=== PATIENT | female | born 2000 | race Caucasian/White ===

== ENCOUNTER 2025-01-31 19:01 | Emergency (ER) | payer BC, SELFPAY ==
[2025-01-31 19:03] VITALS: BP 143/83
[2025-01-31 20:40] VITALS: BMI 21.0
[2025-01-31 20:41] VITALS: BP 119/82
--- NOTE | 2025-01-31 21:59 | ED.SKININJ ---
HPI-Injury
General
Chief Complaint: Eye Problems
Source: patient
Exam Limitations: none
Time Seen by Provider: 01/31/25 21:50
Nursing documentation reviewed up to this point in time: agreed with
History of Present Illness-Injury
Initial Injury comments:
24 yo female presents with swelling, mild erythema upper right eyelid. Had lash extensions 2 days ago. Denies change in vision.
States she started with a headache around the right eye 2 days ago and the eye was 'a little itchy.' As time progressed, the upper eyelid became more swollen and headache persisted.
Denies fever/chills.
Past History
Past History
ED Past Medical History: None
ED Past Surgical History: None
Social History
Tobacco: Non-smoker
Alcohol: Occasional
Personal:
Living: with family
Employment: Employed ([employer])
Review of Systems
Review of Systems
Allergies reviewed?: Yes
All Other Systems: ROS reviewed and negative except as documented in HPI and ROS
Phy Exam
Physical Exam
Physical Exam:
GENERAL: No acute distress. A&Ox3.
CONSTITUTIONAL: Afebrile.
EYES: clear, conjunctivae normal, PERRL. Non tender to palpation. EOMs intact. Visual acuity noted. Mild erythema and mild swelling upper right eyelid, mild erythema right periorbital area.
ENMT: moist mucus membranes, Pharynx nl
RESPIRATORY: Regular respirations, nonlabored, lungs clear.
CARDIOVASCULAR: Regular rate and rhythm, no murmurs, no rubs.
GI: Soft, nontender
MUSCULOSKELETAL: Moves with ease. Well perfused.
SKIN: Warm, dry, pink
PSYCH: Normal mood and affect. Well kept, interactive and appropriate
NEUROLOGIC: Awake, alert and oriented. No focal neurological deficits
Course
Orders/Labs/Results
Orders:
Orders
01/31/25 21:57
CT Orbits W/o Iv Contrast Urgent
Comment:
Reason For Exam: swelling, pain around right eye, R headache
01/31/25 21:58
Acetaminophen [Tylenol] 1,000 mg PO NOW STA
01/31/25 22:00
Visual Acuity- Treatment ONCE
01/31/25 22:04
CT Head W/o Iv Contrast Urgent
Comment:
Reason For Exam: headache
01/31/25 23:26
Cephalexin Monohydrate [Keflex] 500 mg PO NOW STA
Vital Signs
Initial and Last Documented VS:
Initial Vital Signs
Temp Pulse Resp BP Pulse Ox
98.4 F 91 16 143/83 100
01/31/25 19:03 01/31/25 19:03 01/31/25 19:03 01/31/25 19:03 01/31/25 19:03
Last Documented Vital Signs
Temp Pulse Resp BP Pulse Ox
98.4 F 75 18 119/82 99
01/31/25 19:03 01/31/25 20:41 01/31/25 20:41 01/31/25 20:41 01/31/25 22:00
MDM/Problems Addressed
Differential Diagnosis Includes:
preseptal cellulitis, deep tissue cellulitis, allergic reaction to eyelash extensions
MDM/Problems Addressed:
24 yo female presents with swelling, mild erythema upper right eyelid. Had lash extensions 2 days ago. Denies change in vision.
States she started with a headache around the right eye 2 days ago and the eye was 'a little itchy.' As time progressed, the upper eyelid became more swollen and headache persisted.
Denies fever/chills.
Visual acuity noted.
CT orbits and head: radiology report read: IMPRESSION:
Minimal asymmetric right periorbital soft tissue thickening for which preorbital cellulitis is possible.
Small volume layering secretions within the posterior right maxillary sinus. Recommend clinical correlation for possible acute sinusitis.
Pt has no sinus issues do not suspect sinusitis
Rx for Keflex sent to her pharmacy
Pt given copy of CT reports.
She is a [employer] and understands return instructions
*Pulse Oximetry
SaO2: 99
Oxygen Mode of Delivery: Room air
Patient hypoxic: not evaluated
*Critical Care Note
Total Time (30-74mins, 75-104mins- exclusive of procedures): Not Applicable
ED Attending Note
-
Portions of this chart may have been created with voice recognition software.� Occasional wrong word or��sound alike� substitutions may have occurred due to the inherent limitations of voice recognition software.
Discharge Plan
Departure
Patient Disposition: Home (Routine Discharge)
Date of Disposition: 01/31/25
Time of Disposition: 23:38
Patient with high blood pressure during this ER visit?: No
Condition: Good
Discharge Problem:
Preseptal cellulitis
Instructions: Preseptal cellulitis - ED (DC)
Prescriptions:
New
cephalexin 500 mg capsule
500 mg PO QID 7 Days Qty: 28 0RF
No Action
Bcp
meclizine 25 MG tablet
25 mg PO Q8HPRN PRN (Reason: dizziness) Qty: 15 0RF
Referrals:
Bakari Jenkins DO [Family Provider, Family Practice] - As needed
Activity Restrictions/Additional Instructions:
As we discussed, seek medical care immediately for loss of vision, eye pain, fevers, worsening headache, worsening redness and swelling around the eye.
Tylenol ibuprofen as needed for discomfort I sent a prescription to your pharmacy for Keflex to take 4 times a day for 7 days for mild preseptal cellulitis
Just keep in mind there is always a chance that you may be having a local reaction/sensitivity to the eyelash extensions
Interventions
Interventions:
*General Assessment Last Done: 01/31/25 20:41
*Neglect/Abuse Screening Last Done: 01/31/25 19:03
*ED COVID-19 Vaccine History Last Done: 01/31/25 20:41
*ED Influenza Vaccine History Last Done: 01/31/25 20:41
[facility] Fall Risk Assessment Tool Last Done: 01/31/25 20:42
*Risk Screen - Suicide (C-SSRS) Last Done: 01/31/25 19:03
Discharge Date and Time
Print Language: CHILEAN
[2025-01-31] MEDS: TYLENOL 1000 MG PO (22:02)
[2025-01-31 23:30] VITALS: BP 121/76
[2025-01-31] MEDS: KEFLEX 500 MG PO (23:59)
== END 2025-02-01 00:03 | disposition home or self-care (01) ==
LOC: EMR 19:01
PROVIDERS: EMERGENCY PHYSICIAN Emergency Medicine; FAMILY PHYSICIAN Family Medicine
DX: L03.213 Periorbital cellulitis (principal)
CPT/HCPCS: 99284; 70450; 70480